=== PATIENT | female | born 1970 | race Caucasian/White ===

== ENCOUNTER → 2016-11-12 | Outpatient (CLI) | payer OTHER ==
--- NOTE | 2016-11-12 16:10 | DIAGNOSTIC IMAGING REPORT ---
PROCEDURE: MG B/L IMPLANTS - SCREENING INDICATION: SCREENING TECHNIQUE: CC and MLO digital views of each breast with CC and MLO digital implant-displacement views. COMPARISON: Comparison made to prior studies from [facility] on 11/09/2013. FINDINGS: Computer-aided detection applied. Bilateral subpectoral implants appear intact. The visualized portions of the surrounding breast tissue is dense with a few scattered dystrophic calcifications, but within normal limits. IMPRESSION: 1. Negative mammogram. RESULT CODE: 1- Negative. A. A negative report should not delay biopsy if a dominant or clinically suspicious mass is present. 10-15% of cancers are not identified by x-ray. B. A negative report may reinforce clinical impression. C. Adenosis and dense breasts may obscure an underlying neoplasm. D. False positive reports average 6-10%. E.. A yearly screening mammogram is recommended. A reminder letter will be scheduled.
--- NOTE | 2016-11-12 17:24 | DIAGNOSTIC IMAGING REPORT ---
PROCEDURE: US COMPLETE PELVIC W/TRANSVAG INDICATION: Possible uterine enlargement. TECHNIQUE: Transabdominal and endovaginal tolentino scale and color Doppler sonographic images of the female pelvis were obtained. COMPARISON: None. FINDINGS: TRANSABDOMINAL SCANS: Uterus is of normal size (6.5 x 4.2 x 4.5 cm). Right ovary is seen transabdominally and is normal (3.2 cm) with normal blood flow. There is a large left adnexal cyst (11.6 x 8 x 10.3 cm). Kidneys are normal (left 10.4 cm, right 10.0 cm). TRANSVAGINAL SCANS: Myometrium is heterogeneous, without discrete fibroids. Endometrial thickness is normal (5 mm). There are small cervical Nabothian cysts. There is a large simple left ovarian cyst (11.6 cm). Left ovarian tissue is not clearly identified. Trace free fluid. IMPRESSION: 1. Uterus is of normal size with mild generalized fibroid changes (without discrete fibroid), and normal endometrial thickness (5 mm). 2. Normal right ovary. 3. Marked enlargement of the left adnexal region secondary to a large 11.6 x 8 x 10.3 cm ovarian cyst. Etiology is not entirely clear, although this may represent a a chronic benign simple cyst or chronic endometrioma. While there is no soft tissue component, cystic ovarian neoplasm (benign most likely, malignant less likely) might also be considered.
== END ==
LOC: MAM SRH 15:39
DX: Z12.31 Encounter for screening mammogram for malignant neoplasm of breast (principal); N83.202 Unspecified ovarian cyst, left side